=== PATIENT | male | born 1990 | race Caucasian/White ===

== ENCOUNTER 2019-01-04 20:27 | Emergency (ER) | payer MEDICAID, OTHER ==
--- NOTE | 2019-01-04 20:36 | ED ---
Substance Abuse/Use - HPI Summary HPI Summary: A 28 y/o male brought in by police and [facility] ambulance presents to [facility] with a chief complaint of substance abuse. The patient was brought to long-term due to possession of heroin. He reports injecting heroin a few hours ago along with swallowing Dilaudid. He was reportedly vomiting in long-term. - History Of Current Complaint Stated Complaint: OVERDOSE PER EMS Hx Obtained From: Patient, EMS Onset/Duration of Drug/ETOH Abuse: Hours Ingestion History: Type/Name Of Drug - Heroin and Dilaudid Overdose Characteristics: Oral, IV Timing Of Abuse: Binge Use Severity Initially: Mild Severity Currently: Mild Character: Lethargic Aggravating Factor(s): Nothing Alleviating Factor(s): Nothing Associated Signs And Symptoms: Negative - Allergies/Home Medications Allergies/Adverse Reactions: Allergies Allergy/AdvReac Type Severity Reaction Status Date / Time MS Amoxicillin [Amoxicillin] Allergy Severe Anaphylatic Verified 01/04/19 22:32 Shock MS Azithromycin Allergy Severe Anaphylatic Verified 01/04/19 22:32 [From Zithromax] Shock MS Penicillins [Penicillins] Allergy Severe Anaphylatic Verified 01/04/19 22:32 Shock Home Medications: Home Medications Buprenor-Nalox 12-3 mg Sl Film 12 mg SL DAILY 01/04/19 [History Confirmed ] Hydroxyzine Pamoate 25 mg PO BEDTIME 01/04/19 [History Confirmed 01/04/19] [place] Carbonate [[place] Carbonate 600 mg cap] 600 mg PO DAILY 01/04/19 [ History Confirmed 01/04/19] QUEtiapine TAB* [Seroquel 100 MG *] 100 mg PO BEDTIME 01/04/19 [History Confirmed 01/04/19] PMH/Surg Hx/FS Hx/Imm Hx Cardiovascular History: Denies: Hx Pacemaker/ICD Sensory History: Denies: Hx Hearing Aid Psychiatric History: Denies: Hx Panic Disorder - Surgical History Surgery Procedure, Year, and Place: Rt HAND SURGERY- NO METAL ( 2008); REPAIR FX NOSE - Family History Known Family History: Negative: Cardiac Disease, Hypertension, Diabetes - Social History Alcohol Use: Occasionally Substance Use Type: Reports: Heroin Smoking Status (MU): Former Smoker Review of Systems Negative: Fever Positive: Vomiting, Nausea Positive: Other - positive: reported substance abuse PAYROLL SPECIALIST: heroin and Dilaudid All Other Systems Reviewed And Are Negative: Yes Physical Exam - Summary Physical Exam Summary: Constitutional: Well-developed, Well-nourished, Alert. (-) Distressed Skin: Warm, Dry HENT: Normocephalic; Atraumatic Eyes: Conjunctiva normal Neck: Musculoskeletal ROM normal neck. (-) JVD, (-) Stridor, (-) Tracheal deviation Cardio: Rhythm regular, rate normal, Heart sounds normal; Intact distal pulses; The pedal pulses are 2+ and symmetric. Radial pulses are 2+ and symmetric. (-) Murmur Pulmonary/Chest wall: Effort normal. (-) Respiratory distress, (-) Wheezes, (-) Rales Abd: Soft, (-) tenderness, (-) Distension, (-) Guarding, (-) Rebound Musculoskeletal: (-) Edema Lymph: (-) Cervical adenopathy Neuro: Alert, Oriented x3, Sleepy but conversive Psych: Mood and affect Normal Triage Information Reviewed: Yes Vital Signs Reviewed: Yes Re-Evaluation - Re-Evaluation First Eval Re-Evaluation Time: 00:13 Change: Improved Comment: talking, looks good. Course/Dx - Course Course Of Treatment: A 28 y/o male brought in by police and [facility] ambulance presents to [facility] with a chief complaint of substance abuse. The patient was brought to long-term due to possession of heroin. He reports injecting heroin a few hours ago along with swallowing Dilaudid. He was reportedly vomiting in long-term. The physical exam revealed that he was sleepy but conversive. In the ED course the patient was given Zofran IM. Upon re-eval the patient was talking and looking good. He will be discharged home and follow up with his PCP. The patient is agreeable with this plan. - Diagnoses Provider Diagnoses: Opiate abuse, episodic Discharge - Sign-Out/Discharge Documenting (check all that apply): Patient Departure - DC Patient Received Moderate/Deep Sedation with Procedure: No - Discharge Plan Condition: Stable Disposition: HOME Patient Education Materials: Narcotic Use Disorder (ED) Print Language: MALTESE Referrals: [facility] [address] [Outside] - Billing Disposition and Condition Condition: STABLE Disposition: Home - Attestation Statements Document Initiated by Scribe: Yes Documenting Scribe: Brian Sanders Provider For Whom Scribe is Documenting (Include Credential): Virgie Shields MD Scribe Attestation: I, Brian Sanders, scribed for Virgie Henderson MD on 01/05/19 at 0431. Scribe Documentation Reviewed: Yes Provider Attestation: The documentation as recorded by the scribe, Brian Sanders accurately reflects the service I personally performed and the decisions made by me, Virgie Henderson MD Status of Scribe Document: Viewed
[2019-01-04] MEDS ORDERED: Ondansetron INJ* 2 MG/ML VIAL IM ONE (20:49)
[2019-01-05 00:59] VITALS: BP 118/69
== END 2019-01-05 00:58 | disposition home or self-care (01) ==
LOC: ED 20:27
DX: F11.10 Opioid abuse, uncomplicated (principal); Z88.1 Allergy status to other antibiotic agents; Z88.0 Allergy status to penicillin; Z87.891 Personal history of nicotine dependence; Z79.899 Other long term (current) drug therapy
CPT/HCPCS: 96372; 99283; J2405

== ENCOUNTER 2019-01-05 07:38 | Emergency (ER) | payer OTHER ==
--- NOTE | 2019-01-05 07:54 | ED ---
Substance Abuse/Use - HPI Summary HPI Summary: This pt is a 28 Y/O M presenting to [facility] accompanied by his girlfriend and his friend for an overdose sustained last night. He states that he was in [employer] store when he was detained by the police. Prior to being detained he swallowed .2-.3 grams of heroin. He was administered charcoal at [facility]. He states that he does not have any SI or HI at the moment. He states that he feels tired and denies any previous attempts at suicide. He denies any coughing, SOB, CP, N/V, headaches, chills, and fevers. He stated that he is on medications for bipolar hyper disorder. Per his girlfriend and friend he hasnt been taking his medications. He stated that [place] makes him feel sick. 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 Onset/Duration of Drug/ETOH Abuse: Hours Ingestion History: Type/Name Of Drug - heroin, Amount Ingested - .2-.3 mgs Overdose Characteristics: Oral Severity Initially: Moderate Severity Currently: Moderate Character: Lethargic Aggravating Factor(s): Nothing Alleviating Factor(s): Nothing Associated Signs And Symptoms: Negative - coughing, SOB, CP, N/V, headaches, chills, and fevers., Intentional Ingestion, Other: - extremely sleepy - Allergies/Home Medications Allergies/Adverse Reactions: Allergies Allergy/AdvReac Type Severity Reaction Status Date / Time amoxicillin Allergy Anaphylatic Verified 01/05/19 07:46 Shock azithromycin Allergy Anaphylatic Verified 01/05/19 07:46 Shock Penicillins Allergy Anaphylatic Verified 01/05/19 07:46 Shock PMH/Surg Hx/FS Hx/Imm Hx Previously Healthy: No Cardiovascular History: Denies: Hx Pacemaker/ICD Sensory History: Denies: Hx Contacts or Glasses, Hx Hearing Aid Opthamlomology History: Denies: Hx Contacts or Glasses Psychiatric History: Reports: Hx Bipolar Disorder Denies: Hx Panic Disorder, Hx Suicide Attempt - Surgical History Surgery Procedure, Year, and Place: Rt HAND SURGERY- NO METAL ( 2008); REPAIR FX NOSE - Immunization History Immunizations Up to Date: Yes Infectious Disease History: No Infectious Disease History: Denies: Traveled Outside the [place] in Last 30 Days - Family History Known Family History: Negative: Cardiac Disease, Hypertension, Diabetes - Social History Occupation: Employed Full-time Lives: Alone Alcohol Use: None Hx Substance Use: Yes Substance Use Type: Reports: Heroin, Marijuana Substance Use Comment - Amount & Last Used: Dilaudid, heroin, suboxone abuse Hx Tobacco Use: Yes Smoking Status (MU): Former Smoker Review of Systems Positive: Other - Pt is sleepy. Negative: Fever, Chills Negative: Chest Pain Negative: Shortness Of Breath, Cough Negative: Vomiting, Nausea Negative: Headache All Other Systems Reviewed And Are Negative: Yes Physical Exam - Summary Physical Exam Summary: GENERAL: Patient is a well-developed and nourished M who is lying comfortable in the stretcher. Patient is not in any acute respiratory distress. Pt is very sleepy and is having trouble staying awake HEAD AND FACE: Normocephalic EYES: PERRLA, EOMI x 2. EARS: Hearing grossly intact. MOUTH: Oropharynx within normal limits. NECK: Supple, trachea is midline, no adenopathy, no JVD, no carotid bruit. CHEST: Symmetric, no tenderness at palpation LUNGS: Clear to auscultation bilaterally. No wheezing or crackles. CVS: Regular rate and rhythm, S1 and S2 present, no murmurs or gallops appreciated. ABDOMEN: Soft, non-tender. Bowel sounds are normal. No abnormal abdominal pulsations. EXTREMITIES: Full ROM in all major joints, no edema, no cyanosis or clubbing. NEURO: Alert and oriented x 3. No acute neurological deficits. Speech is normal and follows commands. SKIN: Dry and warm Triage Information Reviewed: Yes Vital Signs On Initial Exam: Initial Vitals Temp Pulse Resp BP Pulse Ox 99.5 F 74 16 115/55 93 01/05/19 07:39 01/05/19 07:39 01/05/19 07:39 01/05/19 07:39 01/05/19 07:39 Vital Signs Reviewed: Yes Diagnostics - Vital Signs Vital Signs Temp Pulse Resp BP Pulse Ox 01/05/19 07:39 99.5 F 74 16 115/55 93 - Laboratory Result Diagrams: 01/05/19 08:13 01/05/19 08:13 Lab Statement: Any lab studies that have been ordered have been reviewed, and results considered in the medical decision making process. - EKG 0827 Cardiac Rate: NL - 54 BPM EKG Rhythm: Sinus Rhythm Summary of EKG Findings: EKG at 0827 reveals normal sinus rhythm at a rate of 54 BPM with sinus arrhythmia and early repolarization. No STEMI. No acute changes. Interpreted by Dr. Clayton at 0829 01/05/19. Course/Dx - Course Course Of Treatment: This pt is a 28 Y/O M presenting to [facility] from [facility] for an overdose sustained last night. He states that he was in [employer] when he was detained by the police. Prior to being detained he swallowed .2-.3 grams of heroin. Upon exam the pt is found to be extremely sleepy and he was having issues staying awake during his PE. There were no other abnormalities. Dr. Betancourt, hospitalist, was consulted at 0800 to discuss the plan of care and the possibility of an admission for the pt. She stated that she was not informed that the pt was being presented to [facility] from [place] and stated that she wanted to discuss the pt with Posion Control and have the pt evaluated by prior to accepting the pt to [facility]. The pt was given Zofran 4 mg. Pt was cleared for evaluation at 0819. His EKG at 0827 reveals normal sinus rhythm at a rate of 54 BPM with sinus arrhythmia and early repolarization. No STEMI. No acute changes. The pt had no abnormal lab values that indicated that the pt was stable to be mentally evaluated or cause any concerns. Dr. Kwong stated that the pt will be discharged from their end with a Dx of substance induced mood disorder. Dr. Betancourt, hospitalist, was consulted at 1034 to discuss posion control's statement about the pt's conditon. They stated that the pt cannot be discharged until her begins to evacuate the charcoal from his bowels per Dr. Clarke. Dr. Betancourt was informed that posion control has been contacted 3 times during this shift without effect. - Diagnoses Provider Diagnoses: Substance induced mood disorder, Overdose - Physician Notifications Discussed Care Of Patient With: Sharon Betancourt Time Discussed With Above Provider: 10:37 Instructed by Provider To: Admit As Inpatient Discharge - Sign-Out/Discharge Documenting (check all that apply): Patient Departure - admitted Patient Received Moderate/Deep Sedation with Procedure: No - Discharge Plan Condition: Stable Disposition: ADMITTED TO [facility] Patient Education Materials: Mood Disorders (ED) Referrals: No Primary Care Phys,NOPCP [Primary Care Provider] - - Billing Disposition and Condition Condition: STABLE Disposition: Admitted to [facility] - Attestation Statements Document Initiated by Nola: Yes Documenting Scribe: Pavan Ferrara Provider For Whom Scribe is Documenting (Include Credential): Aretha Clyaton MD Scribe Attestation: IPavan, scribed for Aretha Clayton MD on 01/05/19 at 1808. Scribe Documentation Reviewed: Yes Provider Attestation: The documentation as recorded by the Pavan lao accurately reflects the service I personally performed and the decisions made by , Aretha Clayton MD Status of Scribe Document: Viewed Consult Consult: Dr. Betancourt, hospitalist, was consulted at 0800 to discuss the plan of care and the possibility of an admission for the pt. She stated that she was not informed that the pt was being presented to [facility] from [place] and stated that she wanted to discuss the pt with Posion Control and have the pt evaluated by prior to accepting the pt to [facility]. Dr. Kwong, psychiatrist, stated that the pt will be discharged home with a Dx of substance induced mood disorder at 1007. Dr. Betancourt, hospitalist, was consulted at 1034 to discuss posion control's statement about the pt's conditon. They stated that the pt cannot be discharged until her begins to evacuate the charcoal from his bowels per Dr. Clarke. Dr. Betancourt was informed that posion control has been contacted 3 times during this shift without effect. Dr. Betancourt agreed to admit the pt for further investigations. Case discussed with hospitalist. I discussed results with patient. The patient agrees with this plan.
[2019-01-05 08:34] LABS: ABS Lymphocytes 0.8 10^3/ul (1.0-4.8); ABS Monocytes 0.3 10^3/ul (0-0.8); ABS Neutrophils 7.1 10^3/ul (1.5-7.7); Eosinophil % 0.1 %; Hematocrit 39 % (42-52); Hemoglobin 13.6 g/dL (14.0-18.0); Lymphocyte % 9.9 %; Mean Corpuscular HGB Conc 35 g/dL (31-36); Mean Corpuscular Hemoglobin 30 pg (27-31); Mean Corpuscular Volume 85 fL (80-94); Platelet Count 177 10^3/uL (150-450); Red Blood Count 4.54 10^6 /uL (4.18-5.48); Red Cell Distribution Width 13 % (10-15); White Blood Count 8.3 10^3/uL (3.5-10.8)
[2019-01-05] MEDS ORDERED: Naloxone* 0.4 MG/ML 1 ML VIAL IV PUSH ONE (08:42)
[2019-01-05 08:49] LABS: ALT 13 U/L (7-52); AST 18 U/L (13-39); Albumin 4.3 g/dL (3.2-5.2); Alkaline Phosphatase 53 U/L (34-104); Anion Gap 7 mmol/L (2-11); BUN/Creatinine Ratio 10.1 (8-20); Blood Urea Nitrogen 10 mg/dL (6-24); CO2 Carbon Dioxide 27 mmol/L (22-32); Calcium 8.9 mg/dL (8.6-10.3); Chloride 105 mmol/L (101-111); EGFR African American 110.6 (>60); EGFR Non-African American 91.4 (>60); Globulin 2.2 g/dL (2-4); Glucose 123 mg/dL (70-100); Potassium 3.7 mmol/L (3.5-5.0); Sodium 139 mmol/L (135-145); Total Protein 6.5 g/dL (6.4-8.9)
[2019-01-05 09:15] LABS: Acetaminophen < 15 mcg/mL; Alcohol < 10 mg/dL (<10); Salicylate < 2.50 mg/dL (<30)
[2019-01-05 09:30] LABS: TSH (Thyroid Stimulating Horm) 0.46 mcIU/mL (0.34-5.60)
[2019-01-05 12:58] LABS: Urine Appearance Cloudy; Urine Bilirubin Negative (Negative); Urine Blood Negative (Negative); Urine Color Yellow; Urine Glucose 2+(150 mg/dL) (Negative); Urine Ketones 1+ (Negative); Urine Nitrite Negative (Negative); Urine Protein Negative (Negative); Urine Specific Gravity 1.017 (1.010-1.030); Urine Urobilinogen Negative (Negative)
[2019-01-05 13:10] LABS: Urine Benzodiazepine Screen None Detected (None Detect); Urine Opiates Screen Presumptive Positive (None Detect)
[2019-01-05] MEDS ORDERED: Ondansetron INJ* 2 MG/ML VIAL IV PRN (13:32)
[2019-01-05] MEDS ORDERED: Acetaminophen TAB* 325 MG PO PRN (13:32)
[2019-01-05] MEDS ORDERED: Al Hydrox/Mg Hydrox/Simet LIQ* 30 ML UDC PO PRN (13:32)
[2019-01-05] MEDS ORDERED: Hyoscyamine TAB* 0.125 MG PO PRN (13:48)
[2019-01-05 13:57] LABS: Lithium < 0.10 mmol/L (0.6-1.2)
[2019-01-05] MEDS ORDERED: Charcoal ACTIVATED* 25 GM/120 ML BTL PO SCH (14:00)
[2019-01-05] MEDS ORDERED: Ondansetron INJ* 2 MG/ML VIAL IV SCH (14:00)
[2019-01-05 14:34] VITALS: BP 108/49
[2019-01-05] MEDS ORDERED: Magnesium Hydroxide LIQ* 30 ML UDC PO ONE (15:23)
--- NOTE | 2019-01-05 17:21 | HP ---
HISTORY AND PHYSICAL: DATE OF ADMISSION: 01/05/19 PROVIDER: JOHN Carrasquillo ATTENDING PHYSICIAN WHILE IN THE HOSPITAL: Dr. Sharon Betancourt (dictated by JOHN Carrasquillo). DICTATION ENDS ABRUPTLY JOHN CARRASQUILLO [id number]/[facility] #: [id number] MTDD
--- NOTE | 2019-01-05 19:26 | HP ---
CONTINUATION ADDENDUM INCLUDED ON THIS REPORT HISTORY AND PHYSICAL: DATE OF ADMISSION: 01/05/19 - EMERGENCY DEPT PROVIDER: JOHN Carrasquillo ATTENDING PHYSICIAN WHILE IN THE HOSPITAL: Dr. Sharon Betancourt * (dictated by JOHN Carrasquillo). PRIMARY CARE PROVIDER: None. CHIEF COMPLAINT: Heroin overdose. HISTORY OF PRESENT ILLNESS: Prudencio Lara is a 28-year-old white male with past medical history significant for bipolar disorder and PTSD and history of IV drug abuse, who presents to the emergency department at [facility] [place] a transfer from the emergency department at [facility] after heroin overdose. On in the evening, the patient purchased 0.3 g of heroin. He then saw the police coming and swallowed the bag. Afterwards, he was brought by EMS to the [facility] ED and was later discharged. The patient then went to his home in [place]. Late in the night, is girlfriend noticed that he was no longer breathing and called EMS. EMS reported that the patient appeared cyanotic and was having agonal breaths. He received two doses of intranasal Narcan in the field after initial dose did not have response. When the patient arrived to the emergency department in [place], he still had altered mental status and he was given 1 mg of IV Narcan. Poison control was contacted and recommended admission with overnight monitoring. Due to lack of available space at [facility], he was transferred to [facility] for admission. At the time of my evaluation, the patient feels well, he has no complaints. He denies chest pain , difficulty breathing, nausea, vomiting, fever, or chills. The patient reports that he vomited in the [facility] Emergency Department and believes that he threw up the bag that the heroin was in; however, his girlfriend and a friend who are with him do not believe they saw a bag in his vomitus. Additionally, the patient reports that he has not been taking his lithium for the last several weeks. He explicitly denies suicidal or homicidal ideation. He reports that he only swallowed the bag of heroin to evade the police. He has many reasons to live that are encouraging including his relationship with his girlfriend and his job, which he enjoys. The patient endorses left lower quadrant abdominal pain, which has been ongoing for the last several days. PAST MEDICAL HISTORY: 1. Bipolar disorder. 2. PTSD. 3. IV drug abuse. PAST SURGICAL HISTORY: Left hand surgery, unknown specifics to the patient. HOME MEDICATIONS: 1. [place]ain 300 mg q.a.m. and 600 mg q.p.m. 2. Wellbutrin 300 mg p.o. daily. 3. Seroquel 300 mg p.o. at bedtime. 4. Hyoscyamine 0.125 mg p.o. 4 times a day p.r.n. anxiety. 5. Suboxone 12 mg/3 mg sublingual film daily. ALLERGIES: Anaphylaxis to PENICILLINS and AZITHROMYCIN. FAMILY HISTORY: Parents are living in their mid 40s and are healthy. Denies family history of CVA, coronary artery disease, or diabetes. SOCIAL HISTORY: The patient was using IV heroin for approximately 4 years. He reports that he has been clean for 3 years and has not wanted to use until yesterday, he reports that the reason why he wanted to use yesterday as he has been having ongoing abdominal pain. The patient admits to occasional cocaine use, smoking marijuana twice per week and smoking 1 pack of cigarettes per week total. The patient denies alcohol use. He has been living with his girlfriend in [place]. He has been dating his girlfriend for 4 months, whom he met in residential drug and alcohol rehab. He works at a [employer] in [place]. REVIEW OF SYSTEMS: An 11-point review of systems was completed and all pertinent positives and negatives are above in the HPI. All other systems are negative. PHYSICAL EXAMINATION GENERAL: Young white male, lying upright in hospital bed, appearing comfortable , in no acute distress. His friend and girlfriend at bedside. HEENT: Head: Normocephalic, atraumatic. Eyes: PERRLA. Sclerae anicteric. No nystagmus. ENT: Mucous membranes moist. NECK: Supple without JVD. LUNGS: Clear to auscultation throughout. CARDIO: Regular rate and rhythm without murmurs, rubs, or gallops. ABDOMEN: Normoactive bowel sounds x4 quadrants. Abdomen is soft and nondistended without guarding. No tenderness throughout. No hepatosplenomegaly. EXTREMITIES: No clubbing, cyanosis, or edema. NEUROLOGIC: The patient is alert and oriented x3. Able to move all extremities. No focal deficits. PSYCH: The patient is pleasant and cooperative at the time of evaluation. The patient does not have pressured speech. The patient denies suicidal ideation or homicidal ideation. Attention is fair. Intelligence is fair. SKIN: Skin is warm, dry, and intact. DIAGNOSTIC STUDIES/LAB DATA: White blood cell count 8.3, hemoglobin 13.6, hematocrit 39, platelet count 177. Sodium 139, potassium 2.7, chloride 105, carbon dioxide 27, anion gap 7, BUN 10, creatinine 0.99, glucose 173. Unremarkable LFTs. Serum alcohol less than 10. Positive urine cannabinoids. Positive urine cocaine. Lorain level is less than 0.10. Urine barbiturates, phencyclidine, amphetamines, and benzodiazepines are negative. Urine opiates is positive. ASSESSMENT AND PLAN: Prudencio Lara is a 28-year-old male with past medical history significant for bipolar disorder, posttraumatic stress disorder, history of IV drug abuse, who presents to the emergency department after heroin overdose by ingestion. The patient will be admitted in observation for: 1. Heroin overdose. I personally contacted poison control, who recommended continuing activated charcoal administration every 4 hours at 1 g/kg until there is a charcoal stool. They recommended that the activated charcoal be held if the bowel sounds are absent; therefore, abdominal exams every 2 hours are ordered. Additionally, they recommended premedication with IV Zofran prior to giving charcoal to prevent vomitus of the charcoal. Poison control additionally recommends capnography and telemetry and these have been ordered. The patient needs to be monitored for 24 hours, which is at least until 3 a.m. tomorrow. Social work has been consulted and psych evaluation will be requested as well. The patient follows with outpatient services for history of IV drug abuse and reports he has previously been clean for 3 years prior to this event. He reports abstaining from heroin use prior to purchasing heroin yesterday. I will restart the patient's Suboxone once he begins to have withdrawal symptoms. 2. Bipolar disorder. The patient reports that he has not been compliant with his lithium, which is consistent with his low lithium levels. This also will be referred to the psychology services, which we appreciate their followup. Otherwise, he would need follow up with his outpatient psychiatrist. I do not suspect that he is in acute matilda. I do not suspect that this was an intentional overdose for attempt of suicide. 3. Abdominal pain. P.r.n. Zofran is already ordered. If this pain continues, I will consider CT abdomen and pelvis; however, the patient's abdominal exam is benign. 4. FEN: Electrolytes are within normal limits. Regular diet is ordered. 5. Code status: The patient is full code. 6. DVT prophylaxis: The patient has a DVT risk score of 0 and I will order the patient to ambulate t.i.d. TIME SPENT: Approximately 50 minutes was spent on this admission, approximately half this time was spent at bedside. This case has been reviewed by my attending Dr. Sharon Betancourt, and she agrees with this plan of care. BRIEF UPDATE: The patient elected to leave against medical advice shortly within 1 hour of the patient's admission. I discussed with the patient the risk of leaving, including injury and . I do believe that the patient is clinically sober and free from any altering injury. It appears that he has the capacity to make decisions for himself. I have explained that I am concerned that he may have additional overdose and that he should stay for cardiopulmonary monitoring. I verbalized my concerns for his risk of or injury and the patient still wished to elect to leave against medical advice. He is unwilling to stay overnight for monitoring and is refusing further care at this time. The patient was advised to report to the emergency department if he experiences difficulty breathing, loss of consciousness, chest pain. He is advised to have followup with his outpatient psychiatrist. DISCHARGE: On 01/05/19. TIME: Approximately 1630. PHYSICAL EXAM: Same as above in the history and physical. DISCHARGE DISPOSITION: Against medical advice. CONDITION: Fair. JOHN CARRASQUILLO [id number]/[facility] #: [id number]/[facility] #: [id number] FARZAD
[2019-01-05] MEDS ORDERED: QUEtiapine TAB* 100 MG PO SCH (21:00)
== END 2019-01-05 15:56 | disposition short-term general hospital (02) ==
LOC: ED 07:38
DX: F11.94 Opioid use, unspecified with opioid-induced mood disorder (principal); T40.1X1A Poisoning by heroin, accidental (unintentional), initial encounter; R53.83 Other fatigue; Y92.512 Supermarket, store or market as the place of occurrence of the external cause; I49.9 Cardiac arrhythmia, unspecified
CPT/HCPCS: 36415; 80053; 80178; 80307; 80320; 80329; 81003; 84443; 85025; 93005; 96374; 99285; A9270-GY; G0480; J2310; J2405

== ENCOUNTER 2019-03-15 19:34 | Emergency (ER) | payer OTHER ==
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
[2019-03-15 21:34] VITALS: BP 141/92
== END 2019-03-15 21:32 | disposition home or self-care (01) ==
LOC: ED 19:34
DX: F19.10 Other psychoactive substance abuse, uncomplicated (principal); S90.811A Abrasion, right foot, initial encounter; Z87.891 Personal history of nicotine dependence; F31.9 Bipolar disorder, unspecified; Z88.0 Allergy status to penicillin
CPT/HCPCS: 99283

== ENCOUNTER 2019-05-22 17:20 | Emergency (ER) | payer OTHER ==
[2019-05-22] MEDS ORDERED: Haloperidol INJ IV/IM* 5 MG/ML AMP ONE (17:24)
[2019-05-22] MEDS ORDERED: diPHENhydraMINE IV* 50 MG/ML 1 ml VIAL (BENADRYL) ONE (17:24)
[2019-05-22] MEDS ORDERED: LORazepam INJ* 2 MG/ML 1 ML VIAL ONE (17:24)
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
[2019-05-23 02:16] VITALS: BP 119/79
== END 2019-05-23 02:16 | disposition home or self-care (01) ==
LOC: ED 17:20
DX: F19.10 Other psychoactive substance abuse, uncomplicated (principal); Z87.891 Personal history of nicotine dependence; Z88.0 Allergy status to penicillin; Z88.1 Allergy status to other antibiotic agents
CPT/HCPCS: 99285; J1200; J1630; J2060

== ENCOUNTER 2019-05-31 01:35 | Emergency (ER) | payer OTHER ==
[2019-05-31 02:01] LABS: ABS Basophils 0.1 10^3/ul (0-0.2); ABS Eosinophils 0.3 10^3/ul (0-0.6); ABS Lymphocytes 2.8 10^3/ul (1.0-4.8); ABS Monocytes 0.7 10^3/ul (0-0.8); Eosinophil % 3.7 %; Hematocrit 37 % (42-52); Hemoglobin 12.6 g/dL (14.0-18.0); Lymphocyte % 31.3 %; Mean Corpuscular HGB Conc 34 g/dL (31-36); Mean Corpuscular Hemoglobin 29 pg (27-31); Mean Corpuscular Volume 87 fL (80-94); Mean Platelet Volume 9.2 fL (7.4-10.4); Nucleated Red Blood Cells % 0.2; Platelet Count 244 10^3/uL (150-450); Red Cell Distribution Width 13 % (10-15); White Blood Count 8.9 10^3/uL (3.5-10.8)
[2019-05-31] MEDS ORDERED: Raltegravir* 400 MG TAB PO ONE (02:04)
[2019-05-31] MEDS ORDERED: Tenofovir/Emtricitab 200/300 * TAB PO ONE (02:04)
--- NOTE | 2019-05-31 02:04 | ED ---
- HPI Summary HPI Summary: 29-year-old male presents after needlestick 3 days ago. He states that he uses heroin by injections. He states that he normally disposes his needles properly but he ended up stepping on a needle that was not his and it ended up going into his foot on Thursday. He states he cleaned that area with soap and water. He states that he Thursday morning that he used a needle in his arm. The person he was with later told him that they used the needle prior. The person boyfriend has HIV and there is a high likely hold that the source person also has HIV. The source person also may have hep C. He has no medical conditions. his tetanus is up-to-date. He is from out of town but is not sure if he is currently staying or leaving the area to go back home. He states he comes up to this area once a month. - History of Current Complaint Chief Complaint: EDGeneral Stated Complaint: HIV TEST PER PT Time Seen by Provider: 05/31/19 01:43 PMH/Surg Hx/FS Hx/Imm Hx Endocrine/Hematology History: Denies: Hx Diabetes Cardiovascular History: Reports: Other Cardiovascular Problems/Disorders - heart murmurs Denies: Hx Myocardial Infarction, Hx Pacemaker/ICD Sensory History: Denies: Hx Contacts or Glasses, Hx Legally Blind, Hx Deafness, Hx Hearing Aid Opthamlomology History: Denies: Hx Contacts or Glasses, Hx Legally Blind Psychiatric History: Reports: Hx Bipolar Disorder, Hx of Violent Episodes Against Others Denies: Hx Panic Disorder, Hx Suicide Attempt - Cancer History Hx Chemotherapy: No Hx Radiation Therapy: No - Surgical History Surgery Procedure, Year, and Place: Rt HAND SURGERY- NO METAL ( 2008); REPAIR FX NOSE Infectious Disease History: No Infectious Disease History: Denies: Traveled Outside the US in Last 30 Days - Family History Known Family History: Negative: Cardiac Disease, Hypertension, Diabetes - Social History Alcohol Use: None Hx Substance Use: Yes Substance Use Type: Reports: Cocaine, Heroin, Marijuana, Synthetic Drugs, Other Substance Use Comment - Amount & Last Used: Dilaudid, heroin, suboxone abuse, Fent abuse Hx Tobacco Use: Yes Smoking Status (MU): Light Every Day Tobacco Smoker Review of Systems Negative: Fever Negative: Chest Pain Negative: Shortness Of Breath Positive: Other - needlestick All Other Systems Reviewed And Are Negative: Yes Physical Exam Triage Information Reviewed: Yes Vital Signs On Initial Exam: Initial Vitals Temp Pulse Resp BP Pulse Ox 96.3 F 105 15 128/81 95 05/31/19 01:35 05/31/19 01:35 05/31/19 01:35 05/31/19 01:35 05/31/19 01:35 Vital Signs Reviewed: Yes Appearance: Positive: Well-Appearing Skin: Positive: Warm, Dry, Other - track roberts on arm Head/Face: Positive: Normal Head/Face Inspection Eyes: Positive: Normal, Conjunctiva Clear ENT: Positive: Pharynx normal Respiratory/Lung Sounds: Positive: Clear to Auscultation, Breath Sounds Present Cardiovascular: Positive: Normal, RRR Musculoskeletal: Positive: Normal Neurological: Positive: Normal Psychiatric: Positive: Normal Procedures - Sedation Patient Received Moderate/Deep Sedation with Procedure: No Diagnostics - Vital Signs Vital Signs Temp Pulse Resp BP Pulse Ox 05/31/19 01:35 96.3 F 105 15 128/81 95 - Laboratory Result Diagrams: 05/31/19 01:52 05/31/19 01:52 Lab Statement: Any lab studies that have been ordered have been reviewed, and results considered in the medical decision making process. Needlestick Course/Dx - Course Course Of Treatment: 29-year-old male presents after needlestick 3 days ago. He states that he uses heroin by injections. He states that he normally disposes his needles properly but he ended up stepping on a needle that was not his and it ended up going into his foot on Thursday. He states he cleaned that area with soap and water. He states that he Thursday morning that he used a needle in his arm. The person he was with later told him that they used the needle prior. The person boyfriend has HIV and there is a high likely hold that the source person also has HIV. The source person also may have hep C. He has no medical conditions. his tetanus is up-to-date. He is from out of town but is not sure if he is currently staying or leaving the area to go back home. He states he comes up to this area once a month. On exam has normal physical exam. We will give PEP. Gave referral to Dr. Bowling. Patient understands and agrees the plan. - Diagnoses Provider Diagnoses: History of potentially hazardous body fluid exposure Discharge ED - Sign-Out/Discharge Documenting (check all that apply): Patient Departure - Discharge Plan Condition: Good Disposition: HOME Prescriptions: Ondansetron ODT TAB* [Zofran 4 MG Odt TAB*] 4 mg PO Q6H PRN #20 tab.odt PRN Reason: Nausea Raltegravir* [Isentress*] 400 mg PO BID #42 tab Tenofovir/Emtricitab 200/300 * [Truvada 200/300 mg*] 1 tab PO DAILY #21 tab Patient Education Materials: Emtricitabine/Tenofovir (By mouth), Raltegravir ( By mouth), Postexposure Prophylaxis (ED) Referrals: Lissy RING,Jak Velazquez [Medical Doctor] - Additional Instructions: take truvada once a day take raltegravir twice a day for a month take zofran every 6 hours as needed for nausea follow up with infectious disease follow up with reach number is [phone] for appointment Return to ED if develop any new or worsening symptoms - Billing Disposition and Condition Condition: GOOD Disposition: Home - Attestation Statements Provider Attestation: I have seen the patient with the VIRY and agree with the plan and documentation below except as noted: male presents with concern for exposure to HIV. HIV and hep C negative. given postexposure prophylaxis Maria Isabel Ron MD
[2019-05-31 02:18] LABS: Albumin 4.4 g/dL (3.2-5.2); Albumin/Globulin Ratio 1.8 (1-3); BUN/Creatinine Ratio 17.9 (8-20); EGFR African American 101.4 (>60); EGFR Non-African American 83.8 (>60); Globulin 2.5 g/dL (2-4); Potassium 3.7 mmol/L (3.5-5.0); Total Bilirubin 0.3 mg/dL (0.2-1.0); Total Protein 6.9 g/dL (6.4-8.9)
[2019-05-31] MEDS ORDERED: Ondansetron ODT TAB* 4 MG PO ONE (02:28)
[2019-05-31 02:54] LABS: HIV 4th Generation Nonreactive (Nonreactive)
[2019-05-31] MEDS ORDERED: Calcium Carbonate CHEW TAB* 500 MG (TUMS) PO ONE (03:05)
[2019-05-31 03:36] LABS: Hepatitis B Surface Antigen Nonreactive (Nonreactive)
[2019-05-31 03:53] LABS: Hepatitis B Surface Ab Immune (Immune); Hepatitis C Antibody Negative (Negative)
[2019-05-31 04:04] VITALS: BP 115/63
== END 2019-05-31 04:02 | disposition home or self-care (01) ==
LOC: ED 01:35
DX: Z77.21 Contact with and (suspected) exposure to potentially hazardous body fluids (principal); W46.0XXA Contact with hypodermic needle, initial encounter; Y92.9 Unspecified place or not applicable; F31.9 Bipolar disorder, unspecified; F17.200 Nicotine dependence, unspecified, uncomplicated; Z88.0 Allergy status to penicillin; Z88.1 Allergy status to other antibiotic agents
CPT/HCPCS: 36415; 80053; 85025; 86706; 86803; 87340; 87389; 99283; A9270-GY